=== PATIENT | male | born 1995 | race Two or more races ===

== ENCOUNTER 2020-10-01 13:54 | Emergency (ER) | payer SELFPAY ==
[~2020-10-01] VITALS: Ht 172.7 cm; Wt 71.0 kg
[2020-10-01] MEDS ORDERED: ONDANSETRON HCL 4MG/2ML INJ IV STA (14:17)
[2020-10-01] MEDS ORDERED: FAMOTIDINE 20MG/2ML VIAL IV STA (14:17)
[2020-10-01] MEDS ORDERED: SODIUM CHLORIDE 0.9% 1,000 ML IV ONE ×2 (14:30→16:30)
[2020-10-01] MEDS ORDERED: LORAZEPAM 2MG/ML CPJ IV ONE ×2 (14:30→17:30)
[2020-10-01 15:43] LABS: BASOPHILS % 0.2 % (0.0-2.0); EOSINOPHILS % 0.1 % (0.0-5.0); HEMATOCRIT. 44.5 % (42.0-52.0); HEMOGLOBIN. 15.2 g/dL (14.0-18.0); LYMPHOCYTES % 9.2 % (20.0-50.0); MEAN CORPUSCULAR HEMOGLOBIN 28.7 pg (28.0-32.0); MEAN PLATELET VOLUME 9.7 fl (7.4-10.4); MONOCYTES % 3.7 % (2.0-8.0); NEUTROPHILS % 86.8 % (40.0-76.0); PLATELET 200 x1000/uL (130-400); RED CELL DISTRIBUTION WIDTH 13.4 % (11.6-14.6)
[2020-10-01 15:50] LABS: CHLORIDE 108 mEq/L (98-107)
[2020-10-01 15:52] LABS: PROTHROMBIN TIME 11.1 sec (9.6-11.0)
[2020-10-01 15:56] LABS: ETHANOL BLOOD 10 mg/dL
[2020-10-01] MEDS ORDERED: KETOROLAC 30MG/ML VIAL IV ONE (16:30)
[2020-10-01] MEDS ORDERED: ONDANSETRON HCL 4MG/2ML INJ IV ONE (17:30)
[2020-10-01 18:05] LABS: CLARITY URINE CLEAR (CLEAR); COLOR URINE YELLOW (YELLOW); KETONES URINE 2+ (NEGATIVE); LEUKOCYTE ESTERASE URINE NEGATIVE (NEGATIVE); NITRITE URINE NEGATIVE (NEGATIVE); OCCULT BLOOD URINE NEGATIVE (NEGATIVE); PROTEIN URINE NEGATIVE (NEGATIVE); SPECIFIC GRAVITY URINE 1.012 (1.005-1.030); UROBILINOGEN URINE 0.2 E.U./dL (0.2-1.0)
[2020-10-01 18:49] LABS: *AMPHETAMINES SCREEN URINE NEGATIVE (NEGATIVE); *BARBITURATES SCREEN URINE NEGATIVE (NEGATIVE); *BENZODIAZEPINES SCREEN URINE NEGATIVE (NEGATIVE); *COCAINE SCREEN URINE NEGATIVE (NEGATIVE); METHADONE URINE SCREEN NEGATIVE (NEGATIVE); OPIATES URINE SCREEN NEGATIVE (NEGATIVE); PHENCYCLIDINE URINE SCREEN NEGATIVE (NEGATIVE)
[2020-10-01 18:50] LABS: CANNABINOID URINE SCREEN PRESUMTIVE POSITIVE (NEGATIVE)
[2020-10-01] MEDS ORDERED: OMEP20TA2 MT (20:47)
[2020-10-01] MEDS ORDERED: ONDA4TAB5 MT (20:47)
[2020-10-01 20:55] VITALS: BP 134/74
== END 2020-10-01 21:07 | disposition home or self-care (01) ==
LOC: ER 14:08
DX: R10.13 Epigastric pain (principal); R11.2 Nausea with vomiting, unspecified; F12.10 Cannabis abuse, uncomplicated; F10.10 Alcohol abuse, uncomplicated; Y90.0 Blood alcohol level of less than 20 mg/100 ml; R03.0 Elevated blood-pressure reading, without diagnosis of hypertension; D72.829 Elevated white blood cell count, unspecified; Z71.51 Drug abuse counseling and surveillance of drug abuser; Z71.41 Alcohol abuse counseling and surveillance of alcoholic
CPT/HCPCS: 36415; 71045; 74176; 80053; 80305; 80320; 81003; 83690; 85025; 85610; 96361; 96374; 96375; 96376; 99285; J1885; J2060; J2405; J3490; J7030; J7040; G0480